=== PATIENT | male | born 2000 | race Two or more races ===

== ENCOUNTER → 2019-02-18 | Outpatient (CLI) | payer OTHER ==
--- NOTE | 2019-02-18 15:49 | KCIC ---
AP view the chest without comparison for TB exposure, asymptomatic. FINDINGS: The lungs are clear. The cardiomediastinum is grossly unremarkable. No soft tissue or osseous abnormalities. IMPRESSION: 1. Normal chest x-ray. Electronically signed by: Carlton Hanson MD (02/18/2019 3:46 PM) [id number]
== END | disposition home or self-care (01) ==
LOC: KCIC 08:31
PROVIDERS: ATTEND Family Medicine
DX: Z20.1 Contact with and (suspected) exposure to tuberculosis (principal)
CPT/HCPCS: 71045